=== PATIENT | female | born 1970 | race Hispanic/Latino ===

== ENCOUNTER → 2020-04-07 12:49 | Outpatient (CLI) | payer OTHER, SELFPAY ==
--- NOTE | 2020-04-07 | DI.US.S_ITS ---
LIMITED ULTRASOUND OF LEFT BREAST: 04/07/2020 CLINICAL: Palpable left breast lump felt by clinician. Pain in separate area. Comparison is made to exams dated: 04/07/2020 mammogram - [facility], 08/29/2018 mammogram, and 02/21/2017 ultrasound - outside location. Color flow and real-time ultrasound of the retroareolar, 12:00, 6:00 and medial left breast were performed. Baird scale images of the real-time examination were reviewed. There is a 0.8 cm x 0.7 cm x 0.4 cm oval cyst in the retroareolar left breast at 11 o'clock anterior depth. This oval cyst is hypoechoic with a well-defined boundary. This correlates as palpated. Color flow imaging demonstrates that there is no vascularity present. There also is a 1.1 cm x 0.7 cm x 0.3 cm cluster of oval cysts in the left breast at 12 o'clock middle depth 5 cm from the nipple. This cluster of oval cysts is hypoechoic with a well-defined boundary. This correlates to the reported pain and with mammography findings. Color flow imaging demonstrates that there is no vascularity present. IMPRESSION: PROBABLY BENIGN 1) The 0.8 cm oval cyst in the retroareolar left breast at 11 o'clock anterior depth is consistent with a complicated cyst and is probably benign. 2) The 1.1 cm cluster of oval cysts in the left breast at 12 o'clock 5 cm from the nipple is consistent with a cluster of cysts and is probably benign. A follow-up ultrasound in 6 months is recommended to demonstrate stability. Exam findings were conveyed to the patient. This exam was interpreted at Station ID: [id number]. Electronically Signed By: Boaz Mata M.D. [facility] [place]/:04/07/2020 14:53:34 letter sent: Followup Recommended Ultrasound BI-RADS: 3 Probably benign
--- NOTE | 2020-04-07 | DI.MG.S_ITS ---
BILATERAL DIGITAL DIAGNOSTIC MAMMOGRAM 3D/2D: 04/07/2020 CLINICAL: Left breast pain. Comparison is made to exams dated: 08/29/2018 mammogram, 02/10/2017 mammogram, and 05/19/2016 mammogram - outside location. The tissue of both breasts is extremely dense, which lowers the sensitivity of mammography. No significant masses, calcifications, or other findings are seen in either breast. Diffuse benign calcifications in both breasts. IMPRESSION: INCOMPLETE: NEEDS ADDITIONAL IMAGING EVALUATION No mammographic evidence of malignancy. A targeted ultrasound is recommended to evaluate the palpable retroareolar abnormality and the regions of pain and will immediately follow. This exam was interpreted at Station ID: [id number]. NOTE: For mammograms, a report in lay terms will be sent to the patient. Approximately 15% of breast malignancies will not be visualized mammographically. In the management of a palpable breast mass, a negative mammogram must not discourage biopsy of a clinically suspicious lesion. Electronically Signed By: Boaz Mata M.D. [facility]/:04/07/2020 13:27:56 ACR BI-RADS Category 0: Incomplete 3340F
== END ==
PROVIDERS: PCP Internal Medicine; Referring Provider Internal Medicine; Visit Provider Internal Medicine
DX: N64.4 Mastodynia (principal); N60.02 Solitary cyst of left breast
CPT/HCPCS: 76642; 77066; G0279

== ENCOUNTER → 2020-09-30 12:47 | Outpatient (CLI) | payer OTHER, SELFPAY ==
--- NOTE | 2020-09-30 | DI.US.S_ITS ---
LIMITED ULTRASOUND OF LEFT BREAST: 09/30/2020 CLINICAL: Patient returns today to evaluate three focal asymmetries in the left breast. Comparison is made to exams dated: 04/07/2020 ultrasound, 04/07/2020 mammogram - [facility], 08/29/2018 mammogram, 02/21/2017 ultrasound, 02/10/2017 mammogram, and 05/19/2016 mammogram - outside location. Color flow and real-time ultrasound of the left breast were performed. Baird scale images of the real-time examination were reviewed. There is a 0.7 cm x 0.7 cm x 0.3 cm oval cyst in the left breast at 11 o'clock anterior depth. This oval cyst is hypoechoic with a well-defined boundary. This abnormality is not significantly changed and correlates as palpated. Color flow imaging demonstrates that there is no vascularity present. There also is a 0.9 cm x 0.6 cm x 0.3 cm cluster of oval cysts in the left breast at 12 o'clock middle depth 5 cm from the nipple. This cluster of oval cysts is hypoechoic with a well-defined boundary. These abnormalities are not significantly changed and correlates to the reported pain and with mammography findings. Color flow imaging demonstrates that there is no vascularity present. IMPRESSION: PROBABLY BENIGN 1) The 0.7 cm oval cyst in the left breast at 11 o'clock anterior depth is consistent with a complicated cyst and is probably benign. 2) The 0.9 cm cluster of oval cysts in the left breast at 12 o'clock middle depth is consistent with a complicated cyst and is probably benign. A follow-up ultrasound in 6 months is recommended to demonstrate stability. Patient is due for bilateral mammogram at that time. Exam findings were conveyed to the patient. Patient is advised to monitor for significant change. This exam was interpreted at Station ID: [id number]. Electronically Signed By: Boaz Mata M.D. [facility] [place]/:09/30/2020 13:53:23 letter sent: Followup Recommended Ultrasound BI-RADS: 3 Probably benign
== END ==
PROVIDERS: PCP Internal Medicine; Referring Provider Internal Medicine; Visit Provider Internal Medicine
DX: N60.02 Solitary cyst of left breast (principal); R92.8 Other abnormal and inconclusive findings on diagnostic imaging of breast
CPT/HCPCS: 76642